=== PATIENT | male | born 1980 | race Two or more races ===

== ENCOUNTER 2016-08-04 12:06 | Emergency (ER) | payer OTHER ==
[2016-08-04 12:22] VITALS: BMI 25.2
[2016-08-04] MEDS ORDERED: ASPIRIN 81 MG CHEWABLE TABLETS PO ONE (12:52)
--- NOTE | 2016-08-04 12:52 | PDOC ---
History of Present Illness - General Chief Complaint: Chest Pain Stated Complaint: CHEST PAIN Time Seen by Provider: 08/04/16 12:34 History Source: Patient Exam Limitations: No Limitations - History of Present Illness Initial Comments: 08/04/16 12:53 36y M no pmhx presents with chest pain. Pt states he has had recent bronchitis/ cough was treated with course of abx that he just finished, today while he was at work, he had some chest tightness that was nonradiating wassociated with mild sob - no associated diaphoresis, n/v, back pain, palpitations, headache. Pt denies any recent or worsening cough, hemoptysis, leg swelling, nextremitity numbness/tingling/weakness, dizziness. pt states he is typically pretty active, he works in construction, also runs frequently (3-4 miles) and feels alittle sob as he normally expects as he pushes himself hard - but there is no associated cp. pt denies smoking, +social etoh, denies any recreational drugs (including cocaine/meth, or other stimulants) +oral tobacco, no known family history (but states he lost touch with his family 15 yrs ago). Past History - Past Medical History Allergies/Adverse Reactions: Allergies Allergy/AdvReac Type Severity Reaction Status Date / Time No Known Allergies Allergy Verified 08/04/16 12:22 Home Medications: Ambulatory Orders NK [No Known Home Medication] 08/04/16 Anemia: No Asthma: No Cancer: No Diabetes: No Suicide Attempt (Hx): No Seizures: No Other medical history: PATIENT DENIES MEDICAL HISTORY - Psycho/Social/Smoking Cessation Hx Anxiety: No Suicidal Ideation: No Smoking Status: No Smoking History: Never smoked Number of Cigarettes Smoked Daily: 0 Hx Alcohol Use: No Drug/Substance Use Hx: No Substance Use Type: None Cardiac Specific PMH - Complaint Specific PMHX Pacemaker: No Review of Systems - Review of Systems Able to Perform ROS?: Yes Comments:: 08/04/16 12:56 Constitutional - no reported Fever, Chills, weakness, HEENT: no reported vision changes, sore throat Respiratory: +sob, no reported cough, hemoptysis Cardiac: +chest pain, no reported palpitations, light headedness, leg swelling Abd/GI: no reported abd pain, nausea, vomiting, blood per rectum, melena, diarrhea : no reported dysuria, frequency, discharge Musculskelatal - no reported back pain, joint swelling skin - no reported bruising, erythema, rash neurological: no reported headache, numbness, focal weakness, tingling, ataxia, weakness hematologic: no reported anemia, easy bruising, easy bleeding *Physical Exam - Vital Signs Last Vital Signs Temp Pulse Resp BP Pulse Ox 97.7 F 82 16 121/78 98 08/04/16 20:00 08/04/16 20:00 08/04/16 20:00 08/04/16 20:00 08/04/16 20:00 - Physical Exam Comments: 08/04/16 12:56 GENERAL: The patient is awake, alert, and fully oriented, Nontoxic - in no acute distress. HEAD: Normocephalic, atraumatic. EYES: extraocular movements intact, sclera anicteric, conjunctiva clear. ENT: Normal voice, Moist mucous membranes. NECK: Normal range of motion, supple LUNGS: Breath sounds equal, clear to auscultation bilaterally. No wheezes, no rhonchi, no rales. HEART: Regular rate and rhythm, normal S1 and S2 without murmur, rub or gallop. ABDOMEN: Soft, nontender, normoactive bowel sounds. No guarding, no rebound. . No CVA tenderness EXTREMITIES: Normal range of motion, no edema. No clubbing or cyanosis. No cords, erythema, or tenderness. NEUROLOGICAL: No facial assymetry, Normal speech, PSYCH: Normal mood, normal affect. SKIN: Warm, Dry, normal turgor, Heart Score/ECG Review - History History: Slightly suspicious - Electrocardiogram EKG: Normal - Age Age: </= 45 - Risk Factors Based on the list above the patient has:: No risk factors known - Troponin Troponin: </= normal limit - Score Heart Score - Total: 0 - ECG Impressions Comment:: 08/04/16 12:56 Twelve-lead EKG was performed and reviewed by me. There is normal sinus rhythm with a rate of 53 The axis is normal. The intervals are normal. There is normal R wave progression There are no ST or T wave abnormalities. Impression: sinus bradycardia ED Treatment Course - LABORATORY CBC & Chemistry Diagram: 08/04/16 13:00 08/04/16 13:00 - ADDITIONAL ORDERS Additional order review: 08/04/16 13:00 RBC 5.44 MCV 82.3 MCHC 32.7 RDW 12.4 MPV 7.1 L D Neutrophils % 80.2 Lymphocytes % 14.2 D Monocytes % 4.6 Eosinophils % 0.6 D Basophils % 0.4 - RADIOLOGY Radiology Studies Ordered: Category Date Time Status CHEST PA & LAT [RAD] Stat Radiology 08/04/16 12:52 Completed - Medications Given in the ED: ED Medications Discontinued Medications Generic Name Dose Route Start Last Admin Trade Name Atiya PRN Reason Stop Dose Admin Acetaminophen 650 mg 08/04/16 12:58 08/04/16 13:17 Tylenol - PO 08/04/16 12:59 650 mg ONCE ONE Administration Aspirin 324 mg 08/04/16 12:52 08/04/16 13:17 Asa - PO 08/04/16 12:53 324 mg ONCE ONE Administration Medical Decision Making - Medical Decision Making 08/04/16 12:57 36-year-old gentleman no significant past medical history presenting with a complaint of chest tightness and shortness of breath while at work, patient denies any other history of exertional symptoms, is fairly active and runs regularly - and has never had similar cp. pts exam unremarkable vitals normal ekg shows sinus bradycardia without signs of ischemia low risk for PE - PERC negative, Wells low risk will ck trops x2 - last episode of CP was around 10:30 08/04/16 17:24 trops neg x 1 HEART score 0 awaiting second troponin at 6pm will sign pt out to dr. ponce to fu with troponin and will dc to fu with pmd *DC/Admit/Observation/Transfer Diagnosis at time of Disposition: Chest pain - Discharge Dispostion Disposition: HOME Condition at time of disposition: Stable - Referrals Referrals: Daniella Dixon MD [Primary Care Provider] - Germain Gonsalez MD [Staff Physician] - - Patient Instructions Printed Discharge Instructions: DI for Atypical Chest Pain
[2016-08-04] MEDS ORDERED: ACETAMINOPHEN 325 MG TABLET (FP) PO ONE (12:58)
[2016-08-04] MEDS ORDERED: ASPIRIN 81 MG CHEWABLE TABLETS ONE (13:02)
[2016-08-04 13:07] LABS: BASOPHIL 0.4 % (0-2.0); EOSINOPHIL 0.6 % (0-4.5); MCHC 32.7 g/dl (32.0-35.9); MEAN CELL VOLUME 82.3 fl (80-96); MEAN PLT VOLUME 7.1 fl (7.5-11.1); NEUTROPHILS 80.2 % (42.8-82.8); PLATELET COUNT 322 K/MM3 (134-434); RDW 12.4 % (11.9-15.9); WHITE BLOOD COUNT 11.4 K/mm3 (4.0-10.0)
[2016-08-04] MEDS ORDERED: ACETAMINOPHEN 325 MG TABLET (FP) ONE (13:14)
[2016-08-04 13:20] LABS: INR 1.04 (0.82-1.09); PROTHROMBIN TIME (PATIENT) 11.5 SEC (9.98-11.88)
[2016-08-04 14:05] LABS: ALBUMIN 4.6 g/dl (3.4-5.0); ANION GAP 9 (8-16); BILIRUBIN,TOTAL 0.6 mg/dL (0.2-1.0); CALCIUM 9.4 mg/dL (8.5-10.1); CO2 28 mmol/L (21-32); COCKROFT - GAULT 125.66; CREATININE 0.9 mg/dL (0.7-1.3); GLUCOSE,RANDOM 90 mg/dL (74-106); MAGNESIUM 2.2 mg/dL (1.8-2.4); SGOT/AST 19 U/L (15-37); SGPT/ALT 38 U/L (12-78); TOT PROT 7.8 g/dl (6.4-8.2)
[2016-08-04 14:08] LABS: ALK PHOS 80 U/L (45-117); TROPONIN I < 0.02 ng/ml (0.00-0.05)
[2016-08-04 19:05] LABS: TROPONIN I < 0.02 ng/ml (0.00-0.05)
--- NOTE | 2016-08-04 19:36 | PDOC ---
*Physical Exam - Vital Signs Last Vital Signs Temp Pulse Resp BP Pulse Ox 98.3 F 53 L 18 123/79 98 08/04/16 12:19 08/04/16 13:03 08/04/16 12:19 08/04/16 12:19 08/04/16 13:03 - Physical Exam Comments: 08/04/16 19:35 Patient endorsed to me by Dr. christy. Patient is well-appearing 36-year-old male who presented with atypical chest pain. EKG and serial cardiac enzymes within normal limit. Patient's heart score is 0. At this time, patient will be discharged with cardiology follow-up as an outpatient. ED Treatment Course - LABORATORY CBC & Chemistry Diagram: 08/04/16 13:00 08/04/16 13:00 - ADDITIONAL ORDERS Additional order review: Laboratory Results 08/04/16 08/04/16 08/04/16 18:17 13:00 13:00 INR 1.04 Sodium 138 Potassium 4.2 Chloride 101 Carbon Dioxide 28 Anion Gap 9 BUN 14 Creatinine 0.9 D Creat Clearance w eGFR > 60 Random Glucose 90 Calcium 9.4 Magnesium 2.2 Total Bilirubin 0.6 D AST 19 D ALT 38 D Alkaline Phosphatase 80 Creatine Kinase 78 107 Troponin I < 0.02 < 0.02 Total Protein 7.8 D Albumin 4.6 D 08/04/16 13:00 RBC 5.44 MCV 82.3 MCHC 32.7 RDW 12.4 MPV 7.1 L D Neutrophils % 80.2 Lymphocytes % 14.2 D Monocytes % 4.6 Eosinophils % 0.6 D Basophils % 0.4 - Medications Given in the ED: ED Medications Discontinued Medications Generic Name Dose Route Start Last Admin Trade Name Freq PRN Reason Stop Dose Admin Acetaminophen 650 mg 08/04/16 12:58 08/04/16 13:17 Tylenol - PO 08/04/16 12:59 650 mg ONCE ONE Administration Aspirin 324 mg 08/04/16 12:52 08/04/16 13:17 Asa - PO 08/04/16 12:53 324 mg ONCE ONE Administration *DC/Admit/Observation/Transfer Diagnosis at time of Disposition: Chest pain Qualifiers: Chest pain type: unspecified Qualified Code(s): R07.9 - Chest pain, unspecified - Discharge Dispostion Disposition: HOME Condition at time of disposition: Stable - Referrals Referrals: Daniella Dixon MD [Primary Care Provider] - Germain Gonsalez MD [Staff Physician] - - Patient Instructions Printed Discharge Instructions: DI for Atypical Chest Pain
[2016-08-04 20:01] VITALS: BP 121/78; PULSE 82; TEMP 97.7
--- NOTE | 2016-08-05 10:04 | EKG ---
Test Reason : Blood Pressure : / mmHG Vent. Rate : 053 BPM Atrial Rate : 053 BPM P-R Int : 144 ms QRS Dur : 082 ms QT Int : 408 ms P-R-T Axes : 006 016 011 degrees QTc Int : 382 ms SINUS BRADYCARDIA CANNOT RULE OUT LATERAL INFARCT , AGE UNDETERMINED Confirmed by KEITH CAMPBELL MD ([id number]) on 08/05/2016 10:03:45 AM Referred By: Confirmed By:KEITH CAMPBELL MD
== END 2016-08-04 20:01 | disposition home or self-care (01) ==
LOC: JER 12:06
DX: R07.89 Other chest pain (principal)
CPT/HCPCS: 36415; 71020-TC; 80053; 82550; 83735; 84484; 85025; 85610; 93005; 93010; 99285-25

== ENCOUNTER 2017-02-27 12:20 | Emergency (ER) | payer SELFPAY ==
[2017-02-27 12:33] VITALS: BP 133/77; PULSE 63; TEMP 97.9; BMI 26.5
--- NOTE | 2017-02-27 13:56 | PDOC ---
History of Present Illness - General Chief Complaint: Injury Stated Complaint: RT HAND LACERATION Time Seen by Provider: 02/27/17 13:10 History Source: Patient Exam Limitations: No Limitations - History of Present Illness Initial Comments: 02/27/17 13:46 37 yr male with lac to the right palm at work on a nail that was stuck in aboard. tetnaus UTD bleeding has stopped. no pmhx 02/27/17 14:00 Past History - Past Medical History Allergies/Adverse Reactions: Allergies Allergy/AdvReac Type Severity Reaction Status Date / Time No Known Allergies Allergy Verified 02/27/17 12:29 Home Medications: Ambulatory Orders NK [No Known Home Medication] 08/04/16 Anemia: No Asthma: No Cancer: No COPD: No Diabetes: No Seizures: No - Suicide/Smoking/Psychosocial Hx Smoking Status: No Smoking History: Never smoked Number of Cigarettes Smoked Daily: 0 Information on smoking cessation initiated: No Hx Alcohol Use: No Drug/Substance Use Hx: No Substance Use Type: None Review of Systems - Review of Systems Able to Perform ROS?: Yes Is the patient limited Somali proficient: No Constitutional: No: Symptoms Reported HEENTM: No: Symptoms Reported Respiratory: No: Symptoms reported Cardiac (ROS): No: Symptoms Reported ABD/GI: No: Symptoms Reported : No: Symptoms Reported Musculoskeletal: No: Symptoms Reported Integumentary: Yes: See HPI *Physical Exam - Vital Signs Last Vital Signs Temp Pulse Resp BP Pulse Ox 97.9 F 63 16 133/77 98 02/27/17 12:30 02/27/17 12:30 02/27/17 12:30 02/27/17 12:30 02/27/17 12:30 - Physical Exam General Appearance: Yes: Nourished, Appropriately Dressed HEENT: positive: EOMI, CAROL ANN Musculoskeletal: positive: Normal Inspection Extremity: positive: Normal Capillary Refill, Normal Inspection, Normal Range of Motion Integumentary: positive: Normal Color, Dry, Warm, Other (lac to the hand right palm ) Neurologic: positive: Fully Oriented, Alert, Normal Mood/Affect, Normal Response , Motor Strength 5/5 Procedures - Laceration/Wound Repair Right Hand Wound Length: to 2.5 cm Wound Explored: clean Wound's Depth, Shape: superficial Irrigated w/ Saline: Yes Betadine Prep: Yes Wound Repaired With: Dermabond Medical Decision Making - Medical Decision Making 02/27/17 13:47 cc: hand laceration FROM nv intact superficial lac pt is ambidexterous will dermabond glue repair, wound does not indicate a need for sutures as it is not bleeding is superficial pt agrees with the plan of care *DC/Admit/Observation/Transfer Diagnosis at time of Disposition: Laceration of hand Qualifiers: Encounter type: initial encounter Foreign body presence: without foreign body Laterality: right Qualified Code(s): S61.411A - Laceration without foreign body of right hand, initial encounter - Discharge Dispostion Disposition: HOME Condition at time of disposition: Good - Referrals - Patient Instructions Printed Discharge Instructions: DI for Laceration Repair With Dermabond Additional Instructions: follow with your medical doctor as needed keep the area clean and dry do not get wet for 24hrs then you can briefly get it wet but do not soak in the water no creams or lotions on the glue - Post Discharge Activity
== END 2017-02-27 14:01 | disposition home or self-care (01) ==
LOC: JERFT 12:20
PROC: 0HQFXZZ Repair Right Hand Skin, External Approach (ICD-10-PCS; principal; 2017-02-27)
DX: S61.411A Laceration without foreign body of right hand, initial encounter (principal); W45.0XXA Nail entering through skin, initial encounter; Y93.H3 Activity, building and construction; Y92.69 Other specified industrial and construction area as the place of occurrence of the external cause; Y99.0 Civilian activity done for income or pay
CPT/HCPCS: 99281-25

== ENCOUNTER 2018-04-14 16:06 | Emergency (ER) | payer OTHER ==
[2018-04-14 16:24] VITALS: BP 120/74; PULSE 93; TEMP 100.4; BMI 27.2
[2018-04-14] MEDS ORDERED: IBUPROFEN 600 MG TABLET (FP) PO ONE (16:35)
--- NOTE | 2018-04-14 16:41 | PDOC ---
History of Present Illness - General Chief Complaint: Cold Symptoms Stated Complaint: CHEST COLD Time Seen by Provider: 04/14/18 16:28 History Source: Patient Exam Limitations: No Limitations - History of Present Illness Initial Comments: 04/14/18 16:36 38 yr male with sudden onset cough nasal congestion fever headache started last night. Pt states he often has sinus infections, sinus congestion. no asthma or pmhx. pt uses chewing tobacco. Timing/Duration: reports: yesterday Severity: reports: moderate Past History - Past Medical History Allergies/Adverse Reactions: Allergies Allergy/AdvReac Type Severity Reaction Status Date / Time No Known Allergies Allergy Verified 04/14/18 16:20 Home Medications: Ambulatory Orders Fluticasone Prop 0.05% Nasal [Flonase -] 1 - 2 spray NS DAILY #1 spray.pump Anemia: No Asthma: No Cancer: No COPD: No Diabetes: No Seizures: No - Suicide/Smoking/Psychosocial Hx Smoking Status: No Smoking History: Never smoked Number of Cigarettes Smoked Daily: 0 Hx Alcohol Use: No Drug/Substance Use Hx: No Substance Use Type: None Respiratory Specific PMHX - Complaint Specific PMHX Angina: No Bronchitis: No Pneumonia: No Pulmonary Embolus: No TB (Tuberculosis): No Review of Systems - Review of Systems Able to Perform ROS?: Yes Is the patient limited Frisian proficient: No Constitutional: Yes: Symptoms Reported, Fever HEENTM: Yes: Nose Congestion Respiratory: Yes: Cough *Physical Exam - Vital Signs Last Vital Signs Temp Pulse Resp BP Pulse Ox 100.4 F H 93 H 18 120/74 99 04/14/18 16:20 04/14/18 16:20 04/14/18 16:20 04/14/18 16:20 04/14/18 16:20 - Physical Exam General Appearance: Yes: Nourished, Appropriately Dressed HEENT: positive: EOMI, CAROL ANN, Normal ENT Inspection, TMs Normal, Pharynx Normal, Nasal Congestion Neck: positive: Supple Respiratory/Chest: positive: Lungs Clear, Normal Breath Sounds, Other (dry cough ). negative: Chest Tender, Rales, Wheezing, Hyperresonant, Dullness Cardiovascular: positive: Regular Rhythm, Regular Rate Gastrointestinal/Abdominal: positive: Normal Bowel Sounds, Soft Musculoskeletal: positive: Normal Inspection Extremity: positive: Normal Capillary Refill, Normal Inspection, Normal Range of Motion Integumentary: positive: Normal Color, Dry, Warm Neurologic: positive: Fully Oriented, Alert, Normal Mood/Affect, Normal Response , Motor Strength 5/5 Moderate Sedation - Procedure Monitoring Vital Signs: Procedure Monitoring Vital Signs Temperature 100.4 F H 04/14/18 16:20 Pulse Rate 93 H 04/14/18 16:20 Respiratory Rate 18 04/14/18 16:20 Blood Pressure 120/74 04/14/18 16:20 O2 Sat by Pulse Oximetry (%) 99 04/14/18 16:20 Medical Decision Making - Medical Decision Making 04/14/18 16:40 cc: cough headache sinus congestion started last night neg abd pain neg nvd will check flu swab motrin now *DC/Admit/Observation/Transfer Diagnosis at time of Disposition: Cough Sinusitis Qualifiers: Sinusitis location: frontal Chronicity: acute Recurrence: recurrent Qualified Code(s): J01.11 - Acute recurrent frontal sinusitis - Discharge Dispostion Disposition: HOME Condition at time of disposition: Good - Prescriptions Prescriptions: Fluticasone Prop 0.05% Nasal [Flonase -] 1 - 2 spray NS DAILY #1 spray.pump - Referrals Referrals: Eitan Pagan MD [Staff Physician] - - Patient Instructions Printed Discharge Instructions: DI for Viral Upper Respiratory Infection -- Adult Additional Instructions: drink pleanty of fluids rest at home take ibuprofen 600mg every 8hrs for body aches or fever alternate with tylenol every 4-6hrs use flonase nasal spray take any over the counter cough medicine such as delsym or mucinex follow with your doctor for follow up this week if no improvement or if worse - Post Discharge Activity
[2018-04-14] MEDS ORDERED: IBUPROFEN 400 MG TABLET (FP) PO ONE (16:44)
== END 2018-04-14 17:23 | disposition home or self-care (01) ==
LOC: JERFT 16:06
DX: J01.10 Acute frontal sinusitis, unspecified (principal)
CPT/HCPCS: 87804; 99281-25

== ENCOUNTER 2019-03-25 17:04 | Emergency (ER) | payer BC, OTHER ==
[2019-03-25 17:20] VITALS: BP 142/93; PULSE 65; TEMP 98; BMI 29.8
--- NOTE | 2019-03-25 17:21 | PDOC ---
Rapid Medical Evaluation Chief Complaint: Pain, Acute Time Seen by Provider: 03/25/19 17:18 Medical Evaluation: Allergies Allergy/AdvReac Type Severity Reaction Status Date / Time No Known Allergies Allergy Verified 04/14/18 16:20 03/25/19 17:19 I have performed a brief in-person evaluation of this patient. The patient presents with a chief complaint of: RT posterior elbow pain s/p injury 3 weeks ago. pt report banging elbow on glass 3 weeks ago which has been fine until yesterday with worsening pain. pt report taking motrin 2 days ago for pain Pertinent physical exam findings: no visible swelling to elbow I have ordered the following: RT elbow x-ray The patient will proceed to the ED for further evaluation. Discharge Disposition - Diagnosis Right elbow pain - Discharge Dispostion Condition at time of disposition: Stable - Referrals - Patient Instructions - Post Discharge Activity
--- NOTE | 2019-03-25 18:29 | PDOC ---
History of Present Illness - General Chief Complaint: Pain Stated Complaint: R ELBOW PAIN Time Seen by Provider: 03/25/19 17:18 - History of Present Illness Initial Comments: 03/25/19 18:28 39-year-old male without comorbidities presents for evaluation of right elbow pain. He states he banged his elbow into the wall 2 weeks ago and it still hurts him. No radicular symptoms no systemic symptoms. Past History - Past Medical History Allergies/Adverse Reactions: Allergies Allergy/AdvReac Type Severity Reaction Status Date / Time No Known Allergies Allergy Verified 03/25/19 17:20 Home Medications: Ambulatory Orders Fluticasone Prop 0.05% Nasal [Flonase -] 1 - 2 spray NS DAILY #1 spray.pump Anemia: No Asthma: No Cancer: No COPD: No Diabetes: No Seizures: No - Psycho Social/Smoking Cessation Hx Smoking Status: No Smoking History: Never smoked Have you smoked in the past 12 months: No Number of Cigarettes Smoked Daily: 0 Information on smoking cessation initiated: No Hx Alcohol Use: No Drug/Substance Use Hx: No Substance Use Type: None Review of Systems - Review of Systems Musculoskeletal: Yes: Joint Pain *Physical Exam - Vital Signs Last Vital Signs Temp Pulse Resp BP Pulse Ox 98.0 F 65 17 142/93 100 03/25/19 17:17 03/25/19 17:17 03/25/19 17:17 03/25/19 17:17 03/25/19 17:17 - Physical Exam 03/25/19 18:28 Right elbow skin color temperature normal full range of motion. Tenderness at upper portion in the area of the olecranon. No swelling no instability neurovascular intact upper extremity compartments are soft and nontender Medical Decision Making - Medical Decision Making 03/25/19 18:29 X-rays of the right elbow show no evidence of fracture or trauma. Right elbow contusion follow-up with orthopedics. Patient would like a work note Discharge - Discharge Information Problems reviewed: Yes Clinical Impression/Diagnosis: Right elbow pain Condition: Stable Disposition: HOME - Admission No - Follow up/Referral Referrals: Daniella Dixon MD [Primary Care Provider] - Kaden Lucero DO [Staff Physician] - - Patient Discharge Instructions Additional Instructions: Tylenol and Motrin as directed for pain. Return to the emergency room for worsening symptoms. Without fail please follow-up with orthopedic surgery in 2 to 3 days for further evaluation and treatment options. - Post Discharge Activity Work/Back to School Note: Back to Work
== END 2019-03-25 18:58 | disposition home or self-care (01) ==
LOC: JERFT 17:04
DX: S50.01XA Contusion of right elbow, initial encounter (principal); W22.09XA Striking against other stationary object, initial encounter; Y93.89 Activity, other specified; Y92.89 Other specified places as the place of occurrence of the external cause; Y99.8 Other external cause status
CPT/HCPCS: 73070-TC-RT-FY; 99282-25